=== PATIENT | male | born 2000 | race African-American/Black ===

== ENCOUNTER 2022-02-24 03:00 | Emergency (ER) | payer MEDICAID ==
[~2022-02-24] VITALS: Ht 190.5 cm; Wt 100.2 kg
[2022-02-24 03:20] VITALS: BP 128/70
--- NOTE | 2022-02-24 03:23 | NUR ---
TO BED AMBULATORY
--- NOTE | 2022-02-24 03:30 | NUR ---
TOOTHACHE FOR 2 DAYS, CANT SLEEP
--- NOTE | 2022-02-24 03:35 | NUR ---
Dr. Cruz examining patient.
[2022-02-24] MEDS ORDERED: ACET-8386 PO (03:54)
[2022-02-24] MEDS ORDERED: IBUP-2213 PO (03:54)
[2022-02-24] MEDS: KETOROLAC 60 MG/2 ML VIAL IM ONE (03:54)
[2022-02-24 04:10] VITALS: BP 128/70
--- NOTE | 2022-02-24 04:10 | NUR ---
Patient discharged with v/s stable. Written and verbal after care instructions given and explained. Patient alert, oriented and verbalized understanding of instructions. Ambulatory with steady gait. All questions addressed prior to discharge. ID band removed. Patient advised to follow up with PMD. Rx of MOTRIN AND HYDROCODONE given. Patient educated on indication of medication including possible reaction and side effects. Opportunity to ask questions provided and answered.
== END 2022-02-24 04:10 | disposition home or self-care (01) ==
LOC: MED 03:00
DX: K08.89 Other specified disorders of teeth and supporting structures (principal); F12.90 Cannabis use, unspecified, uncomplicated; Z88.0 Allergy status to penicillin
CPT/HCPCS: 96372; 99283; J1885

== ENCOUNTER 2022-04-08 12:15 | Emergency (ER) | payer MEDICAID ==
[~2022-04-08] VITALS: Ht 190.5 cm; Wt 99.8 kg
[~2022-04-08 12:15] MED LIST: ACET-8386 PO; IBUP-2213 PO
[2022-04-08 12:36] VITALS: BP 127/95
[2022-04-08] MEDS ORDERED: KETOROLAC 30 MG/ML VIAL IM ONE (13:30)
[2022-04-08] MEDS ORDERED: ACET-8386 PO (13:32)
[2022-04-08] MEDS ORDERED: IBUP-2213 PO (13:32)
--- NOTE | 2022-04-08 13:40 | NUR ---
22 y/o male bib self, pt states he woke up this morning with molar pain on bottom left side. pt states he may have bit down hard on food last night which may have provoked pain. skin is pink/warm/dry. a&o x4 with even and steady gait. lungs clear bl, heart rate even and regular. pt denies any fever, cp, sob, or cough at this time. pt states pain is 7/10 at this time. vss. ermd made aware of pt. pmh: denies allergy: penicillin med: denies
[2022-04-08 13:51] VITALS: BP 127/95
--- NOTE | 2022-04-08 13:52 | NUR ---
Patient discharged with v/s stable. Written and verbal after care instructions given and explained. Patient alert, oriented and verbalized understanding of instructions. Ambulatory with steady gait. All questions addressed prior to discharge. ID band removed. Patient advised to follow up with PMD. Rx of hydrocodone, ibuprofen (sent) given. Patient educated on indication of medication including possible reaction and side effects. Opportunity to ask questions provided and answered.
== END 2022-04-08 13:51 | disposition home or self-care (01) ==
LOC: MED 12:15
DX: S02.5XXA Fracture of tooth (traumatic), initial encounter for closed fracture (principal); Z88.0 Allergy status to penicillin; X58.XXXA Exposure to other specified factors, initial encounter; Y93.89 Activity, other specified; Y92.89 Other specified places as the place of occurrence of the external cause; Y99.8 Other external cause status
CPT/HCPCS: 96372; 99283; J1885

== ENCOUNTER 2022-08-22 15:35 | Emergency (ER) | payer MEDICAID ==
[~2022-08-22] VITALS: Ht 190.5 cm; Wt 95.3 kg
[~2022-08-22 15:35] MED LIST changes: -ACET-8386 PO; +ACET-8905 PO
[2022-08-22 15:57] VITALS: BP 136/107
[2022-08-22 16:58] LABS: APPEARANCE,URINE CLEAR (CLEAR); BILIRUBIN,URINE NEGATIVE (NEGATIVE); BLOOD, URINE NEGATIVE (NEGATIVE); COLOR,URINE YELLOW (YELLOW); LEUKOCYTE ESTERASE ,URINE TRACE (NEGATIVE); NITRITE, URINE NEGATIVE (NEGATIVE); PH,URINE 6.5 (5.0-9.0); UGLUCOSE NEGATIVE (NEGATIVE)
[2022-08-22 17:36] LABS: RBC,URINE NONE SEEN /HPF (0-5); WBC,URINE 0-5 /HPF (0-5)
[2022-08-22] MEDS ORDERED: GENTAMICIN 80 MG/2 ML VIAL IM ONE (18:35)
[2022-08-22] MEDS ORDERED: metroNIDAZOLE 500 MG TAB PO ONE (18:35)
[2022-08-22] MEDS ORDERED: DOXY-745 PO (19:03)
[2022-08-22 19:30] VITALS: BP 122/82
== END 2022-08-22 19:30 | disposition home or self-care (01) ==
LOC: MED 15:35
DX: N50.9 Disorder of male genital organs, unspecified (principal); F12.90 Cannabis use, unspecified, uncomplicated; Z88.0 Allergy status to penicillin; Z72.89 Other problems related to lifestyle
CPT/HCPCS: 81001; 86592; 86703; 87491; 96372; 99283; J1580

== ENCOUNTER 2023-01-09 12:02 | Emergency (ER) | payer SELFPAY ==
[~2023-01-09] VITALS: Ht 188 cm; Wt 95.3 kg
[~2023-01-09 12:02] MED LIST changes: +DOXY-745 PO
[2023-01-09 12:20] VITALS: BP 136/98
[2023-01-09] MEDS ORDERED: cefTRIAXone 500 MG in LIDOCAINE MPF 1% 1 ML IM ONE (13:10)
[2023-01-09] MEDS ORDERED: LIDOCAINE MPF 1% 5 ML ONE (13:17)
[2023-01-09] MEDS ORDERED: cefTRIAXone 500 MG VIAL ONE (13:17)
[2023-01-09] MEDS ORDERED: DOXY-690 PO (13:19)
[2023-01-09] MEDS ORDERED: VALA1TAB40 PO (13:19)
--- NOTE | 2023-01-09 13:21 | NUR ---
NABIL WITH PA
--- NOTE | 2023-01-09 13:31 | NUR ---
Patient discharged with v/s stable. Written and verbal after care instructions given and explained. Patient alert, oriented and verbalized understanding of instructions. Ambulatory with steady gait. All questions addressed prior to discharge. ID band removed. Patient advised to follow up with PMD. Rx of VIBRAMCYIN given. Patient educated on indication of medication including possible reaction and side effects. Opportunity to ask questions provided and answered.
== END 2023-01-09 13:30 | disposition home or self-care (01) ==
LOC: MED 12:02
DX: L29.8 Other pruritus (principal); Z79.899 Other long term (current) drug therapy
CPT/HCPCS: 87491; 96372; 99283; J0696; J2001

== ENCOUNTER 2023-01-12 09:39 | Emergency (ER) | payer SELFPAY ==
[~2023-01-12] VITALS: Ht 188 cm; Wt 98.0 kg
[~2023-01-12 09:39] MED LIST changes: +DOXY-690 PO; +VALA1TAB40 PO
[2023-01-12 09:40] VITALS: BP 142/100
[2023-01-12] MEDS ORDERED: ACYC400T14 PO ×2 (10:13→10:14)
[2023-01-12] MEDS ORDERED: DOXY-690 PO ×2 (10:13→10:21)
[2023-01-12] MEDS ORDERED: PENICILLIN G BENZATHINE L-A 1.2 MU/2 ML SYR IM ONE (10:20)
--- NOTE | 2023-01-12 10:22 | NUR ---
EXAM BY DR ROBINS WITH MACHINE STUFFER
--- NOTE | 2023-01-12 10:38 | NUR ---
The patient's care was reviewed and supervised by [facility], RN.
--- NOTE | 2023-01-12 10:45 | NUR ---
Patient discharged with v/s stable. Written and verbal after care instructions given and explained. Patient alert, oriented and verbalized understanding of instructions. Ambulatory with steady gait. All questions addressed prior to discharge. ID band removed. Patient advised to follow up with PMD. Rx of ACYCLOVIR,DOXYCLOCLINE given. Opportunity to ask questions provided and answered.
== END 2023-01-12 10:44 | disposition home or self-care (01) ==
LOC: MED 09:39
DX: A60.00 Herpesviral infection of urogenital system, unspecified (principal); A74.9 Chlamydial infection, unspecified; Z79.899 Other long term (current) drug therapy; Z79.1 Long term (current) use of non-steroidal anti-inflammatories (NSAID); Z79.2 Long term (current) use of antibiotics; Z88.0 Allergy status to penicillin
CPT/HCPCS: 86592; 99283